=== PATIENT | female | born 1970 | race Two or more races ===

== ENCOUNTER → 2017-09-23 | Outpatient (REF) | payer BC ==
[~2017-09-23] MED LIST: ONDA4TAB97 PO; OXYC-865 PO
[2017-09-23 21:49] LABS: PLATELET COUNT, AUTOMATED 686 K/uL (150-450)
== END ==
LOC: ZZSENDIN 19:31
PROVIDERS: ATTEND Internal Medicine Infectious Disease
DX: K65.1 Peritoneal abscess (principal)
CPT/HCPCS: 80202; 82040; 82247; 82310; 82374; 82435; 82565; 82947; 84075; 84132; 84155; 84295; 84450; 84460; 84520; 85025

== ENCOUNTER → 2017-10-20 | Outpatient (REF) | payer BC | LOC: ZZSENDIN 17:28 | PROVIDERS: ATTEND Colon & Rectal Surgery | DX: K57.80 Diverticulitis of intestine, part unspecified, with perforation and abscess without bleeding (principal) | CPT/HCPCS: 82040; 82247; 82310; 82374; 82435; 82565; 82947; 83735; 84075; 84100; 84132; 84155; 84295; 84450; 84460; 84478; 84520; 85027 ==

== ENCOUNTER → 2017-10-27 | Outpatient (REF) | payer BC | LOC: ZZSENDIN 17:40 | PROVIDERS: ATTEND Internal Medicine Infectious Disease | DX: K57.80 Diverticulitis of intestine, part unspecified, with perforation and abscess without bleeding (principal) | CPT/HCPCS: 82040; 82247; 82310; 82374; 82435; 82565; 82947; 83735; 84075; 84100; 84132; 84155; 84295; 84450; 84460; 84478; 84520; 85027 ==

== ENCOUNTER → 2017-11-03 | Outpatient (REF) | payer BC ==
[2017-11-03 16:03] LABS: PLATELET COUNT, AUTOMATED 318 K/uL (150-450)
== END ==
LOC: ZZSENDIN 15:48
PROVIDERS: ATTEND Internal Medicine Infectious Disease
DX: K57.80 Diverticulitis of intestine, part unspecified, with perforation and abscess without bleeding (principal)
CPT/HCPCS: 82040; 82247; 82310; 82374; 82435; 82565; 82947; 83735; 84075; 84100; 84132; 84155; 84295; 84450; 84460; 84478; 84520; 85025

== ENCOUNTER → 2017-11-10 | Outpatient (REF) | payer BC | LOC: ZZSENDIN 14:31 | PROVIDERS: ATTEND Colon & Rectal Surgery | DX: K94.13 Enterostomy malfunction (principal) | CPT/HCPCS: 82040; 82247; 82306; 82310; 82374; 82435; 82525; 82565; 82728; 82947; 83540; 83735; 84075; 84100; 84132; 84155; 84255; 84295; 84450; 84460; 84478; 84520; 84630; 85027; 86140 ==

== ENCOUNTER → 2017-11-17 | Outpatient (REF) | payer BC | LOC: ZZSENDIN 17:27 | PROVIDERS: ATTEND Colon & Rectal Surgery | DX: K94.13 Enterostomy malfunction (principal) | CPT/HCPCS: 82040; 82247; 82306; 82310; 82374; 82435; 82525; 82565; 82728; 82947; 83540; 83550; 83735; 84075; 84100; 84132; 84155; 84255; 84295; 84450; 84460; 84478; 84520; 84630; 85027; 86140 ==

== ENCOUNTER → 2017-11-24 | Outpatient (REF) | payer BC | LOC: ZZSENDIN 18:30 | PROVIDERS: ATTEND Internal Medicine Infectious Disease | DX: K57.80 Diverticulitis of intestine, part unspecified, with perforation and abscess without bleeding (principal) | CPT/HCPCS: 82040; 82247; 82310; 82374; 82435; 82565; 82947; 83735; 84075; 84100; 84132; 84155; 84295; 84450; 84460; 84478; 84520; 85027 ==

== ENCOUNTER → 2017-12-01 | Outpatient (REF) | payer BC | LOC: ZZSENDIN 19:01 | PROVIDERS: ATTEND Internal Medicine Infectious Disease | DX: K57.80 Diverticulitis of intestine, part unspecified, with perforation and abscess without bleeding (principal) | CPT/HCPCS: 82040; 82247; 82310; 82374; 82435; 82565; 82947; 83735; 84075; 84100; 84132; 84155; 84295; 84450; 84460; 84478; 84520; 85027 ==

== ENCOUNTER → 2018-08-07 | Outpatient (CLI) | payer BC ==
--- NOTE | 2018-08-07 11:46 | RADIOLOGY IMAGING REPORT ---
FACILITY: [facility] - [place] PATIENT NAME: Shy Holliday : 1970 MR: [id number] V: [id number] EXAM DATE: ORDERING PHYSICIAN: STEVE VILLAGOMEZ TECHNOLOGIST: Location: [facility] Patient: Shy Holliday : 1970 Visit/Account:[id number] Date of Sevice: 08/07/2018 CHEST PA AND LAT Indication: Bronchitis source of breath and cough for 2 days. Comparison: None Findings: Lungs: Clear. Mediastinum/pulmonary vasculature: Heart size and pulmonary vasculature are normal. Bones/soft tissues: Normal. IMPRESSION: Clear lungs. Report Dictated By: Mohit Conner at 08/07/2018 11:41 AM Report E-Signed By: Mohit Conner at 08/07/2018 11:41 AM WSN:[email or web address]
== END ==
LOC: RAD 10:50
PROVIDERS: ATTEND Family Medicine
DX: J20.9 Acute bronchitis, unspecified (principal)
CPT/HCPCS: 71046

== ENCOUNTER 2018-10-15 15:11 | Emergency (ER) | payer BC ==
--- NOTE | 2018-10-15 15:15 | ER Report ---
History and Physical Time Seen By MD: 15:15 HPI/ROS 48-year-old female has been taking ciprofloxacin for a urinary tract infection and "intestinal infection." Last dose of cipro was this morning. about 6-8 hours later, broke into a rash and developed mild swelling in her left lip. No wheezing or diarrhea. Feels some "tingling" in her throat but denies fullness. Has taken Cipro previously without a reaction. No other new meds or foods. No known trigger. Allergies: Coded Allergies: Sulfa (Sulfonamide Antibiotics) (Verified Allergy, Mild, RASH, 08/07/17) Home Meds Active Scripts Ondansetron Hcl (ZOFRAN) 4 Mg Tablet, 4 MG PO Q8H for Nausea, #15 TAB 0 Refills Prov:GOLDY ADRIAN MD 03/28/17 Oxycodone Hcl/Acetaminophen (PERCOCET 5-325 MG TABLET) 1 Each Tablet, 1 EACH PO Q4H for PAIN, #15 TAB 0 Refills Prov:GOLDY ADRIAN MD 03/28/17 Reviewed Nurses Notes: Yes Old Medical Records Reviewed: Yes Hx Smoking: No Smoking Status: Never Smoker Hx Substance Use Disorder: No Hx Alcohol Use: No Constitutional Vital Sign - Last 24 Hours 10/15/18 10/15/18 10/15/18 10/15/18 15:11 15:19 15:20 15:30 Temp 98.3 Pulse ??? 109 Resp 24 B/P (MAP) 137/66 137/66 (89) 116/62 (80) Pulse Ox 93 O2 Delivery Room Air 10/15/18 10/15/18 10/15/18 10/15/18 15:41 15:42 16:00 16:11 Pulse 92 83 B/P (MAP) 117/70 (86) 109/64 (79) Pulse Ox 95 95 10/15/18 10/15/18 10/15/18 10/15/18 16:41 16:46 17:16 17:26 Pulse 84 84 79 B/P (MAP) 120/79 (93) Pulse Ox 93 93 93 10/15/18 17:28 B/P (MAP) 120/79 (93) Physical Exam General Appearance: The patient is alert, has no immediate need for airway protection and no current signs of toxicity. Eyes: Pupils equal and round no injection. Mouth: Mild swelling to left upper lip. No edema in o/p Respiratory: Chest is non tender, lungs are clear to auscultation. Cardiac: regular rate and rhythm Gastrointestinal: Abdomen is soft and non tender, no masses, bowel sounds n ormal. Skin: diffuse urticaria Medical Decision Making ED Course/Re-evaluation ED Course Uncomplicated allergic reaction secondary to an unknown trigger. I counseled her to stop taking her ciprofloxacin. She does not have a documented UTI, and no longer has symptoms that she described as a feeling of pressure in her bladder. No fever chills. I discussed with her that I do not fully think this is an allergy to ciprofloxacin, and suggested that she ask her primary physician to send her for allergy testing. Decision to Disposition Date: Oct 15, 2018 Decision to Disposition Time: 17:13 Depart Departure Latest Vital Signs Vital Signs Date Time Temp Pulse Resp B/P (MAP) Pulse Ox O2 Delivery O2 Flow Rate FiO2 10/15/18 17:28 120/79 (93) 10/15/18 17:16 79 93 10/15/18 15:19 98.3 24 Room Air Impression: Primary Impression: Allergic reaction Condition: Improved Disposition: HOME OR SELF-CARE Referrals: STEVE VILLAGOMEZ DO (PCP) Patient Instructions: General Allergic Reaction (ED) Problem Qualifiers Primary Impression: Allergic reaction Encounter type: initial encounter Qualified Codes: T78.40XA - Allergy, unspecified, initial encounter WARREN WERNER MD Oct 15, 2018 15:15
[2018-10-15] MEDS ORDERED: ANAPHYLAXIS KIT 1 EA ONE (15:17)
[2018-10-15] MEDS ORDERED: DEXAMETHASONE SOD 20MG/5 ML VL IVP ONE (15:30)
[2018-10-15] MEDS ORDERED: EPINEPHrine 0.3 MG SYR IM ONLY ONE (15:30)
[2018-10-15] MEDS ORDERED: diphenhydrAMINE 50 MG/ML VIAL IVP ONE (15:30)
[2018-10-15] MEDS ORDERED: FAMOTIDINE(*) 20MG/50ML PREMIX 50 ML IVPB ONE (15:30)
[2018-10-15 17:28] VITALS: BP 120/79
== END 2018-10-15 17:34 | disposition home or self-care (01) ==
LOC: ER 15:16
DX: T78.40XA Allergy, unspecified, initial encounter (principal)
CPT/HCPCS: 96365; 96372; 96375; 99284; J0171; J1100; J1200; J3490

== ENCOUNTER 2019-05-30 13:47 | Emergency (ER) | payer BC ==
--- NOTE | 2019-05-30 14:01 | ER Report ---
History and Physical Time Seen By MD: 13:57 Hx. of Stated Complaint: LOWER ABD PAIN X 1 WEEK, DYSURIA, PELVIC PRESSURE, WORSE X 3 DAYS. HPI/ROS CHIEF COMPLAINT: abdominal pain HISTORY OF PRESENT ILLNESS: Patient is a 49 year old female presenting to the ED for LLQ pain that started 1 week ago and has progressively been getting worse, with the last 2 days being significantly worse. Associated left lower back pain and a pressure when she urinates. Also has nausea, a fever and constipation. Tried taking Tylenol and MiraLax which did not help. Last BM was this morning and was small. Denies blood in her urine or stools. No vomiting. Has a history of hysterectomy, oopherectomy, and several small and large intestine surgeries. Her last large intestine infection was 6 months ago which she was put on antibiotics for, doesn't remember the name. REVIEW OF SYSTEMS: Respiratory: No cough, no dyspnea. Cardiovascular: No chest pain, no palpitations. Gastrointestinal: No vomiting, LLQ abdominal pain, nausea, fever Musculoskeletal: No back pain. Allergies: Coded Allergies: Sulfa (Sulfonamide Antibiotics) (Verified Allergy, Mild, RASH, 05/30/19) Home Meds Discontinued Scripts Ondansetron Hcl (ZOFRAN) 4 Mg Tablet, 4 MG PO Q8H for Nausea, #15 TAB 0 Refills Prov:GOLDY ADRIAN MD 03/28/17 Oxycodone Hcl/Acetaminophen (PERCOCET 5-325 MG TABLET) 1 Each Tablet, 1 EACH PO Q4H for PAIN, #15 TAB 0 Refills Prov:GOLDY ADRIAN MD 03/28/17 Past Medical/Surgical History Past medical history of Diverticulitis, perforated large and small intestine Surgical history of hysterectomy, appendectomy, small and large bowel surgery, i ntegumentary surgery No pertinent family history Reviewed Nurses Notes: Yes Hx Smoking: No Smoking Status: Never Smoker Hx Substance Use Disorder: No Hx Alcohol Use: No Constitutional Vital Sign - Last 24 Hours 05/30/19 05/30/19 05/30/19 05/30/19 13:51 15:58 16:16 16:58 Temp 99.3 98.4 Pulse 90 78 82 Resp 18 18 16 B/P (MAP) 116/67 109/80 (90) 118/60 (79) Pulse Ox 94 94 95 O2 Delivery Room Air Room Air Room Air 05/30/19 18:30 Pulse 84 Resp 16 B/P (MAP) 111/62 (78) Pulse Ox 96 O2 Delivery Room Air Physical Exam General Appearance: The patient is alert, has no immediate need for airway protection and no current signs of toxicity. Eyes: Pupils equal and round no injection. Respiratory: Chest is non tender, lungs are clear to auscultation. Cardiac: regular rate and rhythm Gastrointestinal: Abdomen is soft and LLQ tenderness, no masses, bowel sounds present Musculoskeletal: Neck: Neck is supple and non tender. Extremities have full range of motion and are non tender. Skin: No rashes or lesions. DIFFERENTIAL DIAGNOSIS: After history and physical exam differential diagnosis was considered for diverticulitis, constipation, fecal impaction, abscess, perforation Medical Decision Making Data Points Result Diagram: 05/30/19 1356 05/30/19 1356 Laboratory Hematology Test 05/30/19 13:56 White Blood Count 12.7 k/uL (4.5-11.0) H Red Blood Count 4.58 M/uL (4.17-5.56) Hemoglobin 12.9 g/dL (12.0-16.0) Hematocrit 38.8 % (34.0-47.0) Mean Corpuscular Volume 84.8 fL (80.0-96.0) Mean Corpuscular Hemoglobin 28.2 pg (26.0-33.0) Mean Corpuscular Hemoglobin Concent 33.2 g/dL (32.0-36.0) Red Cell Distribution Width 14.3 % (11.5-14.5) Platelet Count 335 K/uL (150-450) Mean Platelet Volume 7.9 fL (7.2-11.1) Neutrophils (%) (Auto) 79.7 % (39.4-72.5) H Lymphocytes (%) (Auto) 13.7 % (17.6-49.6) L Monocytes (%) (Auto) 5.6 % (4.1-12.4) Eosinophils (%) (Auto) 0.7 % (0.4-6.7) Basophils (%) (Auto) 0.3 % (0.3-1.4) Nucleated RBC Relative Count (auto) 0.0 /100WBC Neutrophils # (Auto) 10.1 K/uL (2.0-7.4) H Lymphocytes # (Auto) 1.7 K/uL (1.3-3.6) Monocytes # (Auto) 0.7 K/uL (0.3-1.0) Eosinophils # (Auto) 0.1 K/uL (0.0-0.5) Basophils # (Auto) 0.0 K/uL (0.0-0.1) Nucleated RBC Absolute Count (auto) 0.01 K/uL Chemistry Test 05/30/19 13:56 Sodium Level 136 mmol/L (137-145) Potassium Level 3.5 mmol/L (3.5-5.0) Chloride Level 103 mmol/L (98-107) Carbon Dioxide Level 23 mmol/L (22-31) Blood Urea Nitrogen 13 mg/dl (7-18) Creatinine 1.00 mg/dl (0.52-1.04) Glomerular Filtration Rate Calc 58.5 Random Glucose 120 mg/dl (75-110) Calcium Level 8.9 mg/dl (8.4-10.2) Total Bilirubin 2.6 mg/dl (0.2-1.3) Aspartate Amino Transf (AST/SGOT) 46 U/L (0-35) Alanine Aminotransferase (ALT/SGPT) 85 U/L (0-56) Alkaline Phosphatase 136 U/L (0-126) C-Reactive Protein 13.2 mg/dl (<1.0) Total Protein 8.1 g/dl (6.3-8.2) Albumin 3.9 g/dl (3.5-5.0) Amylase Level 40 U/L (0-110) Lipase 28 U/L (23-300) Urinalysis Test 05/30/19 13:46 Urine Color Yellow Urine Clarity Slightly-cloudy Urine pH 7.0 pH (4.8-9.5) Urine Specific Roe 1.017 Urine Protein Negative mg/dL (NEGATIVE) Urine Glucose (UA) Negative mg/dL (NEGATIVE) Urine Ketones Trace mg/dL (NEGATIVE) Urine Blood Negative (NEGATIVE) Urine Nitrite Negative (NEGATIVE) Urine Bilirubin Negative (NEGATIVE) Urine Urobilinogen 4.0 mg/dL (0.2-1.9) Urine Leukocyte Esterase Negative (NEGATIVE) Urine RBC None /HPF (0-2/HPF) Urine WBC 2 /HPF (0-5/HPF) Urine Squamous Epithelial Cells Many /LPF (</=FEW) Urine Bacteria Negative /HPF (NONE-FEW) Urine Mucus Few /HPF (NONE-FEW) EKG/Imaging Imaging CT ABDOMEN PELVIS W/ CON HISTORY: Left lower quadrant pain and fever TECHNIQUE: Following administration of IV contrast contiguous axial images acquired through the abdomen/pelvis. Coronal and sagittal reformatting also performed.Dose Lowering Technique One of the following dose optimization techniques was utilized in the performance of this exam: Automated exposure control; adjustment of the mA and/or kV according to the patient's size; or use of an iterative reconstruction technique. Specific details can be referenced in the facility's radiology CT exam operational policy. CONTRAST: 75 mL Isovue-370 COMPARISON: March 28, 2017 FINDINGS: Visualized lung bases: There is a 2 mm noncalcified nodule lateral aspect of the right middle lobe best appreciated on image one of series 2. There is linear stranding in the inferior lingula consistent with scarring versus atelectasis Hepatobiliary: There is cholelithiasis although no evidence of biliary ductal dilatation. Liver is enlarged measuring 23 cm in length which is relatively unchanged. There is diffuse hepatic steatosis present Spleen: Negative. Adrenals: Negative. Pancreas: Negative. Kidneys ureters or bladder: Kidneys appear unremarkable. Please see discussion of the bladder under the GI section Genitalia: Hysterectomy GI: For small bowel anastomoses seen in the anterior upper right abdomen. Numerous surgical clips are also seen adjacent to the cecum and terminal ileum. There several surgical clips seen adjacent to the sigmoid colon. There is focal thickening of the mid to distal sigmoid colon where several small diverticula are noted. Just above the bladder there is a 7 x 3.9 x 3.4 cm irregular thick- walled fluid collection with internal air bubbles consistent with abscess. This appears to connect to an additional smaller collection containing air in the anterior left-sided the pelvis measuring approximately 4.3 x 2.2 x 3.6 cm. The main collection is in direct contact with the sigmoid colon and the bladder. Bladder wall is diffusely thickened particularly along the bladder dome which is likely reactive in nature. No air is noted within the bladder . Vessels/spaces/nodes: Negative. Bones/soft tissues: There is thickening and induration of the anterior pelvic wall and mild diastases of the rectus sheath which appears to be related to a prior anterior incision. Additional findings: None pertinent. IMPRESSION: There are two connecting abscesses within the pelvis as detailed above. These appear to be connected to the sigmoid colon where there are several small diverticula. This likely represents a peridiverticular abscess although continued follow-up recommended to exclude a perforated neoplasm. There is bladder wall thickening which is likely reactive related to the adjacent abscess. No air is noted within the bladder Cholelithiasis although no evidence of biliary ductal dilatation Hepatomegaly with diffuse hepatic steatosis similar to the prior study Additional chronic findings as described Results were called to LOUIS PENALOZA at 05/30/2019 3:19 PM. Report Dictated By: Liseth Parada MD at 05/30/2019 3:04 PM Report E-Signed By: Liseth Parada MD at 05/30/2019 3:19 PM WSN:[email or web address] ED Course/Re-evaluation ED Course Patient was admitted on exam room, history of physical were obtained. Differential diagnoses were considered. On examination lungs were clear, heart is regular, abdomen was soft and tender. Tenderness in the abdomen seemed be located more in the left forearm quadrant. If there were 3 push seemed to make the tenderness to the left lower quadrant worse. An IV was started, a CBC, CMP, urinalysis were obtained. Patient had an elevated white count of 12.7. Urinalysis was unremarkable. CT scan of the abdomen and pelvis showed large abscess measuring 7 cm x 3 x 3.9. A second abscess is noted adjacent and connected with the initial abscess measuring 4.4 cm x 2.2 x 2.4. I discussed the case with Dr. Akbar, general surgeon. His circulation was to discuss with inte rventional radiology to see if this is something they could drain. The images were push down and Dr. Ledesma, interventional radiologist, reviewed the images. [place] this is something that he could get one of the patient for transfer down. I then spoke with Dr. Rojas, hospitalist at [facility] negative except the patient for transfer. Patient was transferred via annuals. I discussed this with the patient who verbalized understanding and agreement with plan. Decision to Disposition Date: May 30, 2019 Decision to Disposition Time: 17:10 Depart Departure Latest Vital Signs Vital Signs Date Time Temp Pulse Resp B/P (MAP) Pulse Ox O2 Delivery O2 Flow Rate FiO2 05/30/19 18:30 84 16 111/62 (78) 96 Room Air 05/30/19 15:58 98.4 Impression: Primary Impression: Abscess of sigmoid colon Condition: Condition Unchanged Disposition: [facility]FER TO [facility] Referrals: STEVE VILLAGOMEZ DO (PCP) New Scripts No Active Prescriptions or Reported Meds LOUIS PENALOZA May 30, 2019 14:01
[2019-05-30] MEDS ORDERED: NS(*) 0.9% 1000 ML BAG 1,000 ML IV ONE (14:15)
[2019-05-30] MEDS ORDERED: IOPAMIDOL 76% 100 ML INFUS BTL 100 ML ONE (14:26)
[2019-05-30 15:03] LABS: PLATELET COUNT, AUTOMATED 335 K/uL (150-450)
--- NOTE | 2019-05-30 15:27 | RADIOLOGY IMAGING REPORT ---
FACILITY: [facility] PATIENT NAME: Shy Holliday : 1970 MR: [id number] V: [id number] EXAM DATE: ORDERING PHYSICIAN: LOUIS PENALOZA TECHNOLOGIST: Location: [facility] Patient: Shy Holliday : 1970 Visit/Account:[id number] Date of Sevice: 05/30/2019 CT ABDOMEN PELVIS W/ CON HISTORY: Left lower quadrant pain and fever TECHNIQUE: Following administration of IV contrast contiguous axial images acquired through the abdom en/pelvis. Coronal and sagittal reformatting also performed.Dose Lowering Technique One of the following dose optimization techniques was utilized in the performance of this exam: Autom ated exposure control; adjustment of the mA and/or kV according to the patient's size; or use of an i terative reconstruction technique. Specific details can be referenced in the facility's radiology C T exam operational policy. CONTRAST: 75 mL Isovue-370 COMPARISON: March 28, 2017 FINDINGS: Visualized lung bases: There is a 2 mm noncalcified nodule lateral aspect of the right middle lobe b est appreciated on image one of series 2. There is linear stranding in the inferior lingula consiste nt with scarring versus atelectasis Hepatobiliary: There is cholelithiasis although no evidence of biliary ductal dilatation. Liver is enlarged measuring 23 cm in length which is relatively unchanged. There is diffuse hepatic steatosis present Spleen: Negative. Adrenals: Negative. Pancreas: Negative. Kidneys ureters or bladder: Kidneys appear unremarkable. Please see discussion of the bladder under the GI section Genitalia: Hysterectomy GI: For small bowel anastomoses seen in the anterior upper right abdomen. Numerous surgical clips a re also seen adjacent to the cecum and terminal ileum. There several surgical clips seen adjacent to the sigmoid colon. There is focal thickening of the mi d to distal sigmoid colon where several small diverticula are noted. Just above the bladder there is a 7 x 3.9 x 3.4 cm irregular thick-walled fluid collection with internal air bubbles consistent with abscess. This appears to connect to an additional smaller collection containing air in the anterior left-sided the pelvis measuring approximately 4.3 x 2.2 x 3.6 cm. The main collection is in direct contact with the sigmoid colon and the bladder. Bladder wall is diffusely thickened particularly donna ng the bladder dome which is likely reactive in nature. No air is noted within the bladder . Vessels/spaces/nodes: Negative. Bones/soft tissues: There is thickening and induration of the anterior pelvic wall and mild diastase s of the rectus sheath which appears to be related to a prior anterior incision. Additional findings: None pertinent. IMPRESSION: There are two connecting abscesses within the pelvis as detailed above. These appear to be connected to the sigmoid colon where there are several small diverticula. This likely represents a peridivert icular abscess although continued follow-up recommended to exclude a perforated neoplasm. There is bladder wall thickening which is likely reactive related to the adjacent abscess. No air is noted within the bladder Cholelithiasis although no evidence of biliary ductal dilatation Hepatomegaly with diffuse hepatic steatosis similar to the prior study Additional chronic findings as described Results were called to LOUIS PENALOZA at 05/30/2019 3:19 PM. Report Dictated By: Liseth Parada MD at 05/30/2019 3:04 PM Report E-Signed By: Liseth Parada MD at 05/30/2019 3:19 PM WSN:[email or web address]
[2019-05-30] MEDS ORDERED: PIPERACILLIN/TAZO* 4.5 GM VIAL 4.5 GM in NS(*) 0.9% 100 ML MINI-BAG 100 ML IVPB ONE (16:00)
[2019-05-30] MEDS ORDERED: fentaNYL CITR 100 MCG/2 ML AMP IVP ONE (16:50)
[2019-05-30 18:30] VITALS: BP 111/62
== END 2019-05-30 18:35 | disposition short-term general hospital (02) ==
LOC: ER 14:10
DX: K63.0 Abscess of intestine (principal)
CPT/HCPCS: 74177; 81001; 82150; 83690; 85025; 86140; 96361; 96365; 96375; 99285; J2543; J3010; J7030; Q9967; 82040; 82247; 82310; 82374; 82435; 82565; 82947; 84075; 84132; 84155; 84295; 84450; 84460; 84520

== ENCOUNTER → 2019-05-30 | Outpatient (CLI) | payer BC | LOC: AMB 18:16 | PROVIDERS: ATTEND Nurse Practitioner | DX: K63.0 Abscess of intestine (principal) | CPT/HCPCS: A0425; A0426 ==